=== PATIENT | male | born 1940 | race Caucasian/White ===

== ENCOUNTER → 2017-01-01 | Day surgery (SDC) | payer MEDICARE, OTHER ==
[~2017-01-01] MED LIST: GLYB1TAB50 PO; LACTATED RINGER'S 1000 ML INJ 1,000 ML ONE; METF-324 PO; OMEP20TA OR; PRAD150C PO; PROPOFOL 100 MG/10 ML INJ IV ONE; SIMV20TA OR
--- NOTE | 2017-01-01 08:38 | GIPROC ---
[facility] [address] [facility], [id number] EGD PROCEDURE REPORT EXAM DATE: 01/01/2017 PATIENT NAME: Herbert Guzman MR #: [id number] BIRTHDATE: 1940 ATTENDING: Taj Sorto MD ORDER #: [id number] BENDING MACHINE SET UP OPERATOR: Lori Crowe RN STATUS: outpatient INDICATIONS: The patient is a 76 yr old male here for an EGD due to H/O Cirrhosis, R/O varices PROCEDURE PERFORMED: EGD w/ biopsy MEDICATIONS: None and Per Anesthesia. TOPICAL ANESTHETIC: none CONSENT: The patient understands the risks and benefits of the procedure and understands that these risks include, but are not limited to: sedation, allergic reaction, infection, perforation and/or bleeding. Alternative means of evaluation and treatment include, among others: physical exam, x-rays, and/or surgical intervention. The patient elects to proceed with this endoscopic procedure. medical equipment was checked for proper function. Hand hygiene and appropriate measures for infection prevention was taken. After the risks, benefits and alternatives of the procedure were thoroughly explained, Informed consent was verified, confirmed and timeout was successfully executed by the treatment team. The patient was anesthetized with topical anesthesia and the EC-[id number] ([id number]) endoscope was introduced through the mouth and advanced to the second portion of the duodenum. Retroflexed views revealed no abnormalities The gastroscope was then slowly withdrawn and removed. No Varices seen. Irregular Z line Bx done, possible barretts. The endoscopy was otherwise normal. ADVERSE EVENTS: There were no complications. IMPRESSIONS: 1. No Varices seen 2. Irregular Z line Bx done, possible barretts 3. Normal endoscopy otherwise 4. Retroflexed views revealed no abnormalities RECOMMENDATIONS: 1. Await biopsy results. Biopsy results will not be ready for 7-10 days. If you don't hear from us in two weeks, call our office for biopsy results. 2. Anti-reflux regimen 3. Avoid NSAIDS 4. Resume anticoagulation after tomorrow PATIENT CONDITION: stable DISPOSITION: Home REPEAT EXAM: Return 3 years EGD Taj Sorto MD eSigned: Taj Sorto MD 01/01/2017 8:38 AM cc: Carlos Klein M.D.
== END | disposition home or self-care (01) ==
LOC: ESDC 07:01
PROVIDERS: ATTEND Hospitalist
DX: K74.60 Unspecified cirrhosis of liver (principal); K22.9 Disease of esophagus, unspecified
CPT/HCPCS: 00740; 43239; 88305; J7120